=== PATIENT | male | born 1995 | race Caucasian/White ===

== ENCOUNTER 2017-06-29 14:56 | Emergency (ER) | payer MEDICAID, OTHER ==
[~2017-06-29] VITALS: Ht 180.3 cm; Wt 90.9 kg
[2017-06-29] MEDS ORDERED: DIAZEPAM 5 MG TABLET PO ONE (18:00)
[2017-06-29] MEDS ORDERED: KETOROLAC TROMETHAMINE 60 MG/2 ML VIAL IM ONE (18:00)
[2017-06-29] MEDS ORDERED: HYDROCODONE/ACETAMINOPHEN 5-325 MG TABLET PO ONE (18:45)
[2017-06-29] MEDS ORDERED: MORPHINE SULFATE 10 MG/ML SYRINGE IVP ONE (19:30)
[2017-06-29 20:27] VITALS: BP 125/65
== END 2017-06-29 20:29 | disposition home or self-care (01) ==
LOC: EMS 14:57
DX: S39.012A Strain of muscle, fascia and tendon of lower back, initial encounter (principal); X50.1XXA Overexertion from prolonged static or awkward postures, initial encounter; Y93.89 Activity, other specified; Y92.89 Other specified places as the place of occurrence of the external cause; Y99.8 Other external cause status
CPT/HCPCS: 96372; 96374; 99284; J1885; J2270